=== PATIENT | female | born 1960 | race Caucasian/White ===

== ENCOUNTER → 2020-05-16 | Outpatient (CLI) | payer OTHER ==
[~2020-05-16] MED LIST: IBUPROFEN 600600 M1 PO
== END ==
LOC: M.ULTRA 13:01
PROVIDERS: ATTEND Physician Assistant
DX: M79.605 Pain in left leg (principal)

== ENCOUNTER → 2020-12-25 | Outpatient (CLI) | payer OTHER ==
--- NOTE | 2020-12-25 14:32 | 2DMMODE ---
[place] [address] 2 D/M-MODE ECHOCARDIOGRAM Name: YISSELISAURA Room: [facility]#: [id number] Admission: 12/25/20 Attend Phys: Cait Guadalupe Discharge: Date of : 64 Date of Service: 12/25/20 1432 Report #: [id number] THIS REPORT FOR: cc: Julianne Whittaker Kathleen M. DO Blick, David R. MD [facility] ~ APPROVED REPORT Study performed: 12/25/2020 12:47:15 EXAM: Comprehensive 2D, Doppler, and color-flow Echocardiogram Patient Location: Out-Patient BSA: 1.70 HR: 73 bpm BP: 118/68 mmHg Other Information Study Quality: Good Indications Chest Pain 2D Dimensions IVSd: 9.85 (7-11mm) LVOT Diam: 20.64 (18-24mm) LVDd: 38.38 mm PWd: 8.73 (7-11mm) Ascending Ao: 28.30 (22-36mm) LVDs: 25.38 (25-40mm) Aortic Root: 25.46 mm Volumes Left Atrial Volume (Systole) LA ESV Index: 14.60 mL/m2 Aortic Valve AoV Peak Eladio.: 1.28 m/s AO Peak Gr.: 6.59 mmHg LVOT Max P.34 mmHg AO Mean Gr.: 3.90 mmHg LVOT Mean P.02 mmHg LVOT Max V: 1.04 m/s AO V2 VTI: 27.65 cm LVOT Mean V: 0.65 m/s JAE (VTI): 2.59 cm2 LVOT V1 VTI: 21.42 cm Mitral Valve E/A Ratio: 1.29 [place] [address] 2 D/M-MODE ECHOCARDIOGRAM Name: ISAURA DEY Room: [facility]#: [id number] Admission: 12/25/20 Attend Phys: Cait Guadalupe Discharge: Date of : 64 Date of Service: 12/25/20 1432 Report #: [id number] MV Decel. Time: 126.39 ms MV E Max Eladio.: 0.78 m/s MV PHT: 36.65 ms MVA (PHT): 6.00 cm2 TDI E/Lateral E': 6.50 E/Medial E': 8.67 Medial E' Eladio.: 0.09 m/s Lateral E' Eladio.: 0.12 m/s Pulmonary Valve PV Peak Eladio.: 0.86 m/s PV Peak Gr.: 2.93 mmHg Left Ventricle The left ventricle is normal size. There is normal LV segmental wall motion. There is normal left ventricular wall thickness. Left ventricular systolic function is normal. The left ventricular ejection fraction is within the normal range. LVEF is 55-60%. The left ventricular diastolic function is normal. Right Ventricle The right ventricle is normal size. The right ventricular systolic function is normal. Atria The left atrium size is normal. The right atrium size is normal. Aortic Valve The aortic valve is normal in structure. No aortic regurgitation is present. There is no aortic valvular stenosis. Mitral Valve Doming of the anterior mitral valve leaflet is present. Mild mitral regurgitation. No evidence of mitral valve stenosis. Tricuspid Valve The tricuspid valve is normal in structure. There is trace tricuspid valve regurgitation noted. Pulmonic Valve The pulmonary valve is normal in structure. There is no pulmonic valvular regurgitation. Great Vessels The aortic root is normal in size. IVC is [place] [address] 2 D/M-MODE ECHOCARDIOGRAM Name: ISAURA DEY Room: [facility]#: [id number] Admission: 12/25/20 Attend Phys: Cait Guadalupe Discharge: Date of : 64 Date of Service: 12/25/20 1432 Report #: [id number] collapses >50% with inspiration. Pericardium There is no pericardial effusion. <Conclusion> LVEF is 55-60%. Mild mitral regurgitation. Doming of the anterior mitral valve leaflet is present. <ELECTRONICALLY SIGNED> By: Nicholas Moralez MD, [facility] 12/25/20 [phone] Nicholas Moralez MD, FAC /INF
== END ==
LOC: M.CRD 12:47
PROVIDERS: ATTEND Family Medicine
DX: I34.0 Nonrheumatic mitral (valve) insufficiency (principal)

== ENCOUNTER → 2021-01-14 | Outpatient (CLI) | payer OTHER | LOC: M.CT 14:00 | PROVIDERS: ATTEND Internal Medicine | DX: Z13.6 Encounter for screening for cardiovascular disorders (principal); I25.10 Atherosclerotic heart disease of native coronary artery without angina pectoris ==

== ENCOUNTER → 2021-01-23 | Outpatient (CLI) | payer OTHER ==
--- NOTE | 2021-01-23 12:29 | CARDNUC ---
[place] [address] CARDIAC NUCLEAR IMAGING REPORT Name: ISAURA DEY Room: [facility]#: [id number] Admission: 01/23/21 Attend Phys: Campos Queen, Discharge: Date of : 64 Date of Service: 01/23/21 1229 Report #: [id number] THIS REPORT FOR: cc: Julianne Whittaker Kathleen M. DO Biggs, F. Douglas MD [facility] ~ APPROVED REPORT Study performed: 01/23/2021 07:45:00 Indication: Chest pain Patient Location: Out-Patient Stress Nurse: Rae Palmer RN Ht: 5 ft 8 in Wt: 130 lbs BSA: 1.70 m2 BMI: 19.76 Medical History Medical History: Valvular heart disease Medications: asa-81, propranolol Allergies: No known drug allergies Cardiac Risk Factors: Age, FHX of CAD Exercise History: Physically active Meds Held (24 hrs): propranolol Resting Data Rest SPECT myocardial perfusion imaging was performed in supine position 30 minutes following the intravenous injection of 10.4 mCi of Tc-99m Sestamibi. Time of rest injection: 08:10 The images were gated to evaluate regional wall motion and calculate left ventricular ejection fraction. Administration Route: IV Administration Site: Left AC Exercise Stress At peak stress, the patient was injected intravenously with 35.0mCi of Tc-99m Sestamibi. Time of stress injection: 09:20 Administration Route: IV Administration Site: Left AC Heart Rate at time of stress injection: 145 bpm. Patient continued to exercise for 1 minute(s). Gated Stress SPECT was performed 30 [place] [address] CARDIAC NUCLEAR IMAGING REPORT Name: ISAURA DEY Room: [facility]#: [id number] Admission: 01/23/21 Attend Phys: Campos Queen, Discharge: Date of : 64 Date of Service: 01/23/21 1229 Report #: [id number] injection. The images were gated to evaluate regional wall motion and calculate left ventricular ejection fraction. Prone imaging was performed. Stress Test Details Stress Test: Exercise stress testing was performed using a Vik protocol. HR Max Heart Rate (APMHR): 162 bpm Resting HR: 82 bpm Target HR (85% APMHR): 137 bpm Max HR Achieved: 145 bpm % of APMHR: 89 Recovery HR: 91 bpm HR response to stress: Normal HR response to stress BP Resting BP: 144/75 mmHg Max BP: 165/75 mmHg Recovery BP: 145/86 mmHg BP response to stress: Normal blood pressure response to stress. ECG Resting ECG: Sinus Rhythm, normal EKG Stress ECG: Sinus Tachycardia ST Change: Upsloping ST depression Maximum ST Deviation: 1 mm Arrhythmia: None Recovery ECG: Sinus tachycardia Recovery ST Change: None Recovery Arrhythmia: None Clinical Reason for Termination: Fatigue Stress Symptoms: Fatigue Stress ECG Conclusion ECG: Non-ischemic Clinical: Non-ischemic Normal submaximal EKG stress test. Study Quality Study: Good Artifact: Mild Breast artifact Lung Uptake: [place] [address] CARDIAC NUCLEAR IMAGING REPORT Name: ISAURA DEY Room: [facility]#: [id number] Admission: 01/23/21 Attend Phys: Campos Queen, Discharge: Date of : 64 Date of Service: 01/23/21 1229 Report #: [id number] Study Data At rest, the left ventricular ejection fraction was 80%.. Post stress, the left ventricular ejection was 81%.. SSS: 0 SRS: 0 SDS: 0 TID = 0.89. Perfusion The resting study demonstrated a small mild anterior defect. The post stress images demonstrate a small very mild anterior defect. Prone images demonstrate a small very mild anterior defect and a small very mild inferoapical defect. There were no reversible defects seen there was no evidence of myocardial ischemia. The fixed defect seen likely represent breast attenuation artifact Images were reviewed using [employer]. Wall Motion Normal left ventricular wall motion. Nuclear Conclusion ECG Findings: negative for ischemia Clinical Findings: negative for ischemia Nuclear Findings: negative for ischemia Exercise Capacity: normal Left Ventricular Function: normal Risk Study: low Normal study. No scintigraphic evidence for myocardial ischemia or scar. <Conclusion> ECG: Non-ischemic Clinical: Non-ischemic Normal submaximal EKG stress test. <ELECTRONICALLY SIGNED> By: Campos Qeuen MD, FACC 01/23/21 1229 28 28 Campos Queen MD, FACC /INF
== END ==
LOC: M.NUC 01-14 11:38
PROVIDERS: ATTEND Internal Medicine
DX: R07.9 Chest pain, unspecified (principal); I25.10 Atherosclerotic heart disease of native coronary artery without angina pectoris; I25.84 Coronary atherosclerosis due to calcified coronary lesion

== ENCOUNTER → 2021-02-13 | Outpatient (CLI) | payer OTHER | LOC: M.ULTRA 09:30 | PROVIDERS: ATTEND Internal Medicine | DX: K21.9 Gastro-esophageal reflux disease without esophagitis (principal); R07.9 Chest pain, unspecified ==